=== PATIENT | male | born 1940 | race Caucasian/White ===

== ENCOUNTER → 2021-04-07 09:41 | Outpatient (CLI) | payer OTHER, SELFPAY ==
--- NOTE | 2021-04-07 09:51 | DI.US.S_ITS ---
PROCEDURE: US ABDOMEN LIMITED INDICATIONS: ?RIGHT INGUINAL HERNIA TECHNIQUE: Real-time focused scanning was performed of the inguinal region, with image documentation. Color Doppler was also utilized. COMPARISON: None. FINDINGS: Scanning is performed of the right groin, including with Valsalva maneuver. On these images, there is an apparent direct inguinal hernia seen which contains fat. This hernia appears largely reducible. The size of the neck is 1.1 x 1.4 cm. IMPRESSION: Fat containing right groin hernia, which is attributed to a direct inguinal hernia. If it would be helpful for clinical management decision making, please consider a preoperative, dedicated CT of the pelvis with at least IV contrast for further evaluation. Dictated by: Aric Ramires M.D. on 04/07/2021 at 10:10 Approved by: Aric Ramires M.D. on 04/07/2021 at 10:11
== END ==
PROVIDERS: PCP Physician Assistant; Referring Provider Physician Assistant; Visit Provider Physician Assistant
DX: K40.90 Unilateral inguinal hernia, without obstruction or gangrene, not specified as recurrent (principal)
CPT/HCPCS: 76705

== ENCOUNTER → 2021-04-19 13:14 | Outpatient (CLI) | payer OTHER, SELFPAY ==
[2021-04-19 20:32] LABS: COVID19 - ORCAS (NP or Nasal) Negative (Negative)
== END ==
PROVIDERS: PCP Physician Assistant; Visit Provider Family Medicine
DX: Z20.822 Contact with and (suspected) exposure to COVID-19 (principal)
CPT/HCPCS: U0003

== ENCOUNTER 2021-04-20 10:55 | Day surgery (SDC) | payer OTHER, SELFPAY ==
[2021-04-16 12:29] VITALS: BMI 26.0
[2021-04-20] VITALS (7 sets, daily range): BP systolic 112–136; BP diastolic 66–80; PULSE 49–60; RESP 8–16; TEMP 36.1–37.1; O2SAT 86–100; BMI 24.9
[2021-04-20] MEDS: LACTATED RINGERS 1,000 ML 100 ML IV (11:52)
--- NOTE | 2021-04-20 12:50 | PM.PREOP ---
Pre-operative Note Interval Note History & Physical reviewed/Exam performed by Physician: Yes Changes to H&P: No
[2021-04-20] MEDS: CEFAZOLIN 1 GM VIAL 2 GM IV (13:10)
--- NOTE | 2021-04-20 13:32 | SUR.OPER ---
Supine on padded OR bed, head on pillow, arms secured on padded arm boards at <90 degrees abduction, legs uncrossed, safety belt at thigh, tape over blanket over lower legs.
[2021-04-20] MEDS: BUPIVACAINE 0.25% (PF) VIAL 30 ML INJ (13:39)
--- NOTE | 2021-04-20 14:32 | PM.OP.1 ---
Operative Date/Time/Diagnoses Date of procedure: 04/20/21 Time of procedure: 14:32 Pre-op diagnosis: Right inguinal hernia Post-op diagnosis: same Procedure & Clinicians Procedure: Open right inguinal hernia repair with mesh Same procedure as scheduled: Yes Indications: Right inguinal hernia Surgeon: Deshawn Gonzalez Anesthesia Type: General Operative Notes Findings: Large direct floor defect. No indirect hernia. Specimen(s): none sent Estimated Blood Loss (mL): 20 Procedure in detail: The patient was placed supine on the table and bilateral lower extremity compression devices were applied. Anesthesia was induced they were intubated with an LMA and received 2g of Ancef. A time-out was performed. They were prepped and draped in sterile fashion. The right external inguinal ring and the anterior superior iliac crest were identified and marked. 1 finger breath above the inguinal ligament the skin was infiltrated with 0.25% bupivacaine. The skin incision was made here and the subcutaneous tissues were divided with electrocautery exposing the external oblique aponeurosis which was then opened along the direction of its fibers. Using blunt dissection the internal oblique aporneurosis was from the external oblique upper leaflet to identify the iliohypogastric nerve. Using a kittner the cord was carefully dissected away from the inguinal canal adjacent to the pubic tubercle. The cord including the vas deferens, testicular bloody supply, ilioguinal and genital nerve were encircled with a Griffin drain. A large direct floor defect was identified and it was reduced into the abdomen and the internal oblique aporneuorsis was approximated to the inguinal ligament with Ethibond suture to reapproximate the floor. The cremasteric fibers surrounding the cord were divided using electrocautery adjacent to the internal ring.. The vas deferens and the testicular vessels were preserved and protected. The cord structures were carefully examined there was no evidence of an indirect inguinal hernia. I selected a 7x 15 cm lightweight Pro Loop hernia mesh. The inferior medial aspect of the mesh was anchored to insertion of the rectus muscle to the pubic tubercle such that there was approximately 2 cm of tubercle overlap with Ethibond and then was run continuously along the inferior edge of the mesh to the shelving edge of the inguinal ligament. Interrupted 3 0 Vicryl suture was used to anchor the superior aspect of the mesh to the conjoined tendon in several places. The tails were then reapproximated loosely around the spermatic cord. The tails of the mesh were then tucked under the external oblique aponeurosis. The repair was checked for hemostasis. The wound was irrigated with sterile saline. The external oblique aponeurosis was reapproximated in a running fashion using 3 0 Vicryl. The subcutaneous tissues were reapproximated with 3 0 Vicryl skin closed with 4 0 Monocryl followed by the application of Dermabond. At the end of the operation I ensured that both testicles were within the scrotum. The sponge instrument count at the end operation was correct. The patient emerged from anesthesia was extubated and transferred to the postoperative care unit in stable condition. A total of 30 ml of of 0.25% bupivicaine was used to infiltrate the skin. Complications: none Post-operative Condition: stable Disposition: same day surgery
--- NOTE | 2021-04-20 14:50 | SUR.PHASEI ---
Received to PACU after general anesthesia. Report received from MARY Jones and Dr Rubio.
--- NOTE | 2021-04-20 15:23 | SUR.PHASEII ---
Phase II discharge expedited so that pt could make the [id number] to [facility] and not wait for the [place] ferry. Pt needing slight assistance with ambulation for steadiness. Pt wheeled out to by Micheline Person RN.
== END 2021-04-20 15:17 | disposition home or self-care (01) ==
PROVIDERS: PCP Physician Assistant; Referring Provider Surgery; Visit Provider Surgery
PROC: (CPT 49505; principal; 2021-04-20 13:15)
DX: K40.90 Unilateral inguinal hernia, without obstruction or gangrene, not specified as recurrent (principal); Z95.818 Presence of other cardiac implants and grafts; I25.2 Old myocardial infarction; E03.9 Hypothyroidism, unspecified
CPT/HCPCS: 49505; C1781; J0690; J1100; J2405; J2704; J3010

== ENCOUNTER → 2022-09-05 08:43 | Outpatient (CLI) | payer OTHER, SELFPAY ==
[2022-09-05 19:03] LABS: Monotest Negative (Negative)
[2022-09-05 19:06] LABS: Add Manual Diff / Slide Review NO; Basophils Absolute Auto 0 /uL (0-100); Basophils Percent Auto 0.5 % (0-2); Eosinophils Absolute Auto 400 /uL (0-450); Eosinophils Percent Auto 5.9 % (2-4); Hematocrit 42.2 % (41-53); Hemoglobin 14.1 g/dL (13.5-17.5); Lymphocytes Absolute Auto 2400 /uL (1100-4500); Lymphocytes Percent Auto 37.2 % (25-40); Mean Corpuscular HGB Conc 33.3 % (30-36); Monocytes Absolute Auto 600 /uL (0-900); Monocytes Percent Auto 9.3 % (3-14); Neutrophils Absolute Auto 3100 /uL (1500-7000); Neutrophils Percent Auto 47.1 % (50-75); Platelet Count 189 X10^3/uL (150-400); Red Blood Cell Count 4.69 X10^6/uL (4.5-5.9); Red Cell Distribution Width 14.5 % (11.6-14.8); White Blood Cell Count 6.5 X10^3/uL (4.5-11.0)
[2022-09-05 19:18] LABS: BUN Creatinine Ratio 19.3 (6-22); Blood Urea Nitrogen 21 mg/dL (9-20); C-Reactive Protein Quant < 0.5 mg/dL (<1.0); Calcium 9.3 mg/dL (8.4-10.2); Carbon Dioxide 27 mmol/L (22-32); Chloride 104 mmol/L (98-107); Estimated Glomerular Filt Rate > 60 mL/min (>60); Glucose 92 mg/dL (80-110); HEMOLYSIS < 15 (0-50); Potassium 4.6 mmol/L (3.4-5.1); Sodium 140 mmol/L (137-145)
[2022-09-05 19:41] LABS: Erythrocyte Sedimentation Rate 11 MM/HR (0-15)
[2022-09-05 21:14] LABS: TSH w/ Reflex to FT4 2.63 uIU/mL (0.47-4.68)
== END ==
PROVIDERS: PCP Family Medicine; Visit Provider Family Medicine
DX: I25.2 Old myocardial infarction (principal); R05.9 Cough, unspecified; R41.89 Other symptoms and signs involving cognitive functions and awareness; R42 Dizziness and giddiness; R53.83 Other fatigue; Z87.19 Personal history of other diseases of the digestive system; Z95.5 Presence of coronary angioplasty implant and graft; Z98.890 Other specified postprocedural states
CPT/HCPCS: 80048; 84443; 85025; 85651; 86140; 86318

== ENCOUNTER → 2024-07-25 15:02 | Outpatient (CLI) | payer OTHER, SELFPAY | PROVIDERS: PCP Family Medicine; Visit Provider Family Medicine | DX: R31.9 Hematuria, unspecified (principal) | CPT/HCPCS: 87086 ==